=== PATIENT | female | born 1955 | race Two or more races ===

== ENCOUNTER 2023-09-20 06:41 | Inpatient (IN) | payer MEDICARE, OTHER ==
[~2023-09-20] VITALS: Ht 160 cm; Wt 92.2 kg
[2023-09-20] MEDS ORDERED: LIDOCAINE 2% JEL UROJET 10 ML MM ONE (06:59)
[2023-09-20] MEDS ORDERED: FENTANYL PF 100MCG/2ML AMPUL ONE (07:00)
[2023-09-20] MEDS ORDERED: LABETALOL HCL IV 100MG VIAL ONE (07:00)
[2023-09-20] MEDS ORDERED: OXYMETAZOLINE HCL NASAL SPRAY 30 ML BOTTLE NS ONE (07:00)
[2023-09-20] MEDS ORDERED: FAMOTIDINE/PF INJ 20 MG/2 ML VIAL IV ONE (07:01)
[2023-09-20] MEDS ORDERED: ROCURONIUM BROMIDE 50 MG/5 ML ONE (07:01)
[2023-09-20] MEDS ORDERED: LIDOCAINE 2%-EPI 1:100,000 30 ML VIAL ONE (07:02)
[2023-09-20] MEDS ORDERED: dexaMETHasone SOD PHOSPHATE 2 ML ONE (07:02)
[2023-09-20] MEDS ORDERED: VANCOMYCIN 1 GM VIAL ONE (07:03)
[2023-09-20] MEDS ORDERED: ACETAMINOPHEN 325 MG TABLET PO PRN (11:30)
[2023-09-20] MEDS ORDERED: ONDANSETRON HCL/PF 4 MG/2 ML VIAL IV PRN (11:30)
[2023-09-20] MEDS: HYDROMORPHONE 1 MG/1 ML DISP.SYRIN IV PRN (12:34)
[2023-09-20] MEDS ORDERED: Z GUARD REMEDY 4 OZ OINT TP PRN (13:00)
[2023-09-20] MEDS ORDERED: MAGNESIUM HYDROXIDE 30 ML UDC PO PRN (13:00)
[2023-09-20] MEDS ORDERED: ONDANSETRON HCL/PF 4 MG/2 ML VIAL IVP PRN (13:00)
[2023-09-20] MEDS ORDERED: MAG HYDROX/AL HYDROX/SIMETH 30 ML UDC PO PRN (13:00)
[2023-09-20] MEDS: IV NS 0.9% 1,000 ML IV PRN (15:26)
[2023-09-20] MEDS ORDERED: CHOL200059 PO (18:38)
[2023-09-20 20:00] VITALS: BP 127/70; TEMP 98.8; O2SAT 94
[2023-09-20] MEDS: VANCOMYCIN 1 GM in IV D5W 250ml IV SCH (20:47)
[2023-09-20] MEDS: ACETAMINOPHEN 325 MG TABLET PO PRN (20:50)
[2023-09-20 21:00] VITALS: O2SAT 94
[2023-09-21 06:49] LABS: BASOPHILS % (AUTO) 0.1 % (0.0-2.0); EOSINOPHILS % (AUTO) 0.1 % (0.0-6.0); HEMATOCRIT 40 % (33-45); HEMOGLOBIN 13.2 g/dL (11.5-14.8); LYMPHOCYTES # (AUTO) 1.6 K/uL (0.8-4.8); LYMPHOCYTES % (AUTO) 14.6 % (20.0-44.0); MEAN CORPUSCULAR HEMOGLOBIN 27 PG (26.0-33.0); MEAN CORPUSCULAR HGB CONC 33 g/dl (31.0-36.0); MEAN CORPUSCULAR VOLUME 81 fL (82-100); MONOCYTES # (AUTO) 0.8 K/uL (0.1-1.30); MONOCYTES % (AUTO) 6.9 % (2.0-12.0); NEUTROPHILS # (AUTO) 8.8 K/uL (1.8-8.9); NEUTROPHILS % (AUTO) 78.3 % (43.0-81.0); PLATELET COUNT (AUTO) 287 K/uL (150-450); RED BLOOD CELL COUNT(AUTO) 4.88 MIL/uL (4.0-5.2); RED CELL DISTRIBUTION WIDTH 14.3 % (11.5-15.0); WHITE BLOOD COUNT (AUTO) 11.3 K/uL (4.3-11.0)
[2023-09-21 07:11] LABS: CALCIUM, SERUM 8.2 mg/dL (8.5-10.1); CREATININE 0.6 mg/dL (0.6-1.3); MAGNESIUM 2.4 mg/dL (1.8-2.4); PHOSPHORUS 3.2 mg/dL (2.5-4.9)
[2023-09-21 07:15] LABS: POTASSIUM 2.7 mmol/L (3.5-5.1)
[2023-09-21 08:00] VITALS: BP 132/82; TEMP 98.8; O2SAT 95
[2023-09-21] MEDS ORDERED: POTASSIUM CHLORIDE 20 MEQ TAB.PRT.SR PO ONE (09:30)
[2023-09-21] MEDS: POTASSIUM CHLORIDE 20 MEQ TAB.PRT.SR PO ONE (09:55)
== END 2023-09-21 10:58 | disposition home or self-care (01) | DRG 144 ==
LOC: DS 06:41 → MED 11:00
PROVIDERS: ADMIT Internal Medicine; ATTEND Internal Medicine
PROC: 0NBV0ZX Excision of Left Mandible, Open Approach, Diagnostic (ICD-10-PCS; principal; 2023-09-20)
PROC: 0NST0ZZ Reposition Right Mandible, Open Approach (ICD-10-PCS; 2023-09-20)
PROC: 09BQ0ZZ Excision of Right Maxillary Sinus, Open Approach (ICD-10-PCS; 2023-09-20)
PROC: 0NUV07Z Supplement Left Mandible with Autologous Tissue Substitute, Open Approach (ICD-10-PCS; 2023-09-20)
PROC: 0NUR07Z Supplement Maxilla with Autologous Tissue Substitute, Open Approach (ICD-10-PCS; 2023-09-20)
PROC: 0NSV0ZZ Reposition Left Mandible, Open Approach (ICD-10-PCS; 2023-09-20)
PROC: 0NUT0JZ Supplement Right Mandible with Synthetic Substitute, Open Approach (ICD-10-PCS; 2023-09-20)
PROC: 0NBR0ZX Excision of Maxilla, Open Approach, Diagnostic (ICD-10-PCS; 2023-09-20)
PROC: 0NBT0ZX Excision of Right Mandible, Open Approach, Diagnostic (ICD-10-PCS; 2023-09-20)
DX: S02.40CA Maxillary fracture, right side, initial encounter for closed fracture (principal); M87.88 Other osteonecrosis, other site; T81.83XA Persistent postprocedural fistula, initial encounter; D16.4 Benign neoplasm of bones of skull and face; S02.69XA Fracture of mandible of other specified site, initial encounter for closed fracture; S02.40DA Maxillary fracture, left side, initial encounter for closed fracture; M27.2 Inflammatory conditions of jaws; I10 Essential (primary) hypertension; M27.49 Other cysts of jaw; J32.9 Chronic sinusitis, unspecified; X58.XXXA Exposure to other specified factors, initial encounter; Y93.9 Activity, unspecified; Y92.009 Unspecified place in unspecified non-institutional (private) residence as the place of occurrence of the external cause
CPT/HCPCS: 36415; 80048-TC; 83735-TC; 84100-TC; 85025-TC; A4223; C1713; G0378; J1100; J1170; J2405; J2704; J2765; J3010; J3370; J3490; J7030; J7060

== ENCOUNTER 2024-04-02 06:53 | Inpatient (IN) | payer MEDICARE, OTHER ==
[2024-04-02] VITALS (8 sets, daily range): BP systolic 123–159; BP diastolic 73–88; TEMP 97.6–98.5; O2SAT 94–96
[~2024-04-02] VITALS: Ht 160 cm; Wt 73.0 kg
[~2024-04-02 06:53] MED LIST: CHOL200059 PO; FENTANYL PF 100MCG/2ML AMPUL ONE; KETAMINE HCL (500MG/10ML) 50 MG/ML VIAL ONE; LIDOCAINE 1%-EPI 1:100,000 20 ML VIAL ONE; OXYMETAZOLINE HCL NASAL SPRAY 30 ML BOTTLE NS ONE; ROCURONIUM BROMIDE 50 MG/5 ML ONE; VANCOMYCIN 1 GM VIAL ONE; dexaMETHasone SOD PHOSPHATE 2 ML ONE
[2024-04-02] MEDS ORDERED: LABETALOL 20 MG/4 ML VIAL ONE (08:12)
[2024-04-02] MEDS ORDERED: hydrALAZINE HCL IV 20 MG VIAL ONE (08:12)
[2024-04-02] MEDS ORDERED: SEVOFLURANE 250 ML BOTTLE IH ONE (08:27)
[2024-04-02] MEDS ORDERED: ONDANSETRON HCL/PF 4 MG/2 ML VIAL IV PRN (11:00)
[2024-04-02] MEDS ORDERED: ACETAMINOPHEN 325 MG TABLET PO PRN (11:00)
[2024-04-02] MEDS: HYDROMORPHONE 1 MG/1 ML DISP.SYRIN IV PRN (11:06)
[2024-04-02] MEDS: IV NS 0.9% 1,000 ML IV PRN (12:29)
[2024-04-02] MEDS ORDERED: CHLO50TA PO (13:26)
[2024-04-02] MEDS ORDERED: IBUP-1955 PO (13:26)
[2024-04-02] MEDS: VANCOMYCIN 1 GM in IV D5W 250ml IV SCH (20:39)
[2024-04-03 07:30] VITALS: BP 131/75; TEMP 98.6; O2SAT 94
[2024-04-03] MEDS ORDERED: CHLORTHALIDONE 50 MG PO SCH (09:00)
== END 2024-04-03 14:15 | disposition home or self-care (01) | DRG 908 ==
LOC: DS 06:53 → MED 06:57
PROC: 0NSL0ZZ Reposition Left Palatine Bone, Open Approach (ICD-10-PCS; principal; 2024-04-02)
PROC: 0N5R0ZZ Destruction of Maxilla, Open Approach (ICD-10-PCS; 2024-04-02)
PROC: 0N5V0ZZ Destruction of Left Mandible, Open Approach (ICD-10-PCS; 2024-04-02)
PROC: 0N5T0ZZ Destruction of Right Mandible, Open Approach (ICD-10-PCS; 2024-04-02)
PROC: 0NHV04Z Insertion of Internal Fixation Device into Left Mandible, Open Approach (ICD-10-PCS; 2024-04-02)
PROC: 0NHR04Z Insertion of Internal Fixation Device into Maxilla, Open Approach (ICD-10-PCS; 2024-04-02)
PROC: 0NHT04Z Insertion of Internal Fixation Device into Right Mandible, Open Approach (ICD-10-PCS; 2024-04-02)
PROC: 0NUR07Z Supplement Maxilla with Autologous Tissue Substitute, Open Approach (ICD-10-PCS; 2024-04-02)
DX: T86.831 Bone graft failure (principal); S02.40CK Maxillary fracture, right side, subsequent encounter for fracture with nonunion; S02.40DK Maxillary fracture, left side, subsequent encounter for fracture with nonunion; S02.69XK Fracture of mandible of other specified site, subsequent encounter for fracture with nonunion; S02.82XA Fracture of other specified skull and facial bones, left side, initial encounter for closed fracture; X58.XXXD Exposure to other specified factors, subsequent encounter; I10 Essential (primary) hypertension; Z87.891 Personal history of nicotine dependence; J32.0 Chronic maxillary sinusitis; M27.40 Unspecified cyst of jaw; T18.0XXA Foreign body in mouth, initial encounter; Y83.2 Surgical operation with anastomosis, bypass or graft as the cause of abnormal reaction of the patient, or of later complication, without mention of misadventure at the time of the procedure; X58.XXXA Exposure to other specified factors, initial encounter; Y93.9 Activity, unspecified; Y92.009 Unspecified place in unspecified non-institutional (private) residence as the place of occurrence of the external cause
CPT/HCPCS: 87081-TC; 88305-TC; 88311-TC; A4338; C1713; G0378; J0360; J1100; J1171; J2405; J2704; J3010; J3370; J3490; J7030; J7060

== ENCOUNTER 2024-08-07 09:34 | Inpatient (IN) | payer MEDICARE, OTHER ==
[~2024-08-07] VITALS: Ht 167.6 cm; Wt 77.1 kg
[~2024-08-07 09:34] MED LIST changes: +CHLO50TA PO; +IBUP-1955 PO; -KETAMINE HCL (500MG/10ML) 50 MG/ML VIAL ONE; -LIDOCAINE 1%-EPI 1:100,000 20 ML VIAL ONE; +MIDAZOLAM HCL 2 MG/2ML VIAL ONE; -OXYMETAZOLINE HCL NASAL SPRAY 30 ML BOTTLE NS ONE; -ROCURONIUM BROMIDE 50 MG/5 ML ONE; -VANCOMYCIN 1 GM VIAL ONE; -dexaMETHasone SOD PHOSPHATE 2 ML ONE
[2024-08-07] MEDS ORDERED: VANCOMYCIN 1 GM VIAL ONE (12:12)
[2024-08-07] MEDS ORDERED: LIDOCAINE 2%-EPI 1:100,000 30 ML VIAL ONE (12:12)
[2024-08-07] MEDS ORDERED: HYDROMORPHONE 1 MG/1 ML DISP.SYRIN IV PRN ×2 (13:00→14:30)
[2024-08-07 14:10] VITALS: BP 146/88; TEMP 98.2; O2SAT 96
[2024-08-07] MEDS ORDERED: ACETAMINOPHEN 325 MG TABLET PO PRN ×2 (14:30→17:00)
[2024-08-07] MEDS ORDERED: ONDANSETRON HCL/PF 4 MG/2 ML VIAL IV PRN (14:30)
[2024-08-07] MEDS: IV NS 0.9% 1,000 ML IV PRN (15:36)
[2024-08-07] MEDS ORDERED: CHOL100043 PO (15:49)
[2024-08-07 15:59] VITALS: BP 126/64; TEMP 97.8; O2SAT 99
[2024-08-07 16:01] VITALS: BP 126/64; TEMP 97.8; O2SAT 99
[2024-08-07] MEDS ORDERED: ONDANSETRON HCL/PF 4 MG/2 ML VIAL IVP PRN (17:00)
[2024-08-07 20:00] VITALS: BP 126/74; TEMP 98.1; O2SAT 95
[2024-08-07] MEDS: VANCOMYCIN 1 GM in IV D5W 250ml IV SCH (23:06)
[2024-08-08 06:24] LABS: BASOPHILS # (AUTO) 0.1 K/uL (0.0-0.2); BASOPHILS % (AUTO) 1.1 % (0.0-2.0); HEMATOCRIT 41 % (33-45); HEMOGLOBIN 13.9 g/dL (11.5-14.8); LYMPHOCYTES # (AUTO) 1.3 K/uL (0.8-4.8); LYMPHOCYTES % (AUTO) 11.9 % (20.0-44.0); MEAN CORPUSCULAR HEMOGLOBIN 28 PG (26.0-33.0); MEAN CORPUSCULAR HGB CONC 34 g/dl (31.0-36.0); MEAN CORPUSCULAR VOLUME 82 fL (82-100); MONOCYTES # (AUTO) 0.5 K/uL (0.1-1.30); MONOCYTES % (AUTO) 5.2 % (2.0-12.0); NEUTROPHILS # (AUTO) 8.6 K/uL (1.8-8.9); NEUTROPHILS % (AUTO) 81.8 % (43.0-81.0); PLATELET COUNT (AUTO) 262 K/uL (150-450); RED BLOOD CELL COUNT(AUTO) 5.02 MIL/uL (4.0-5.2); RED CELL DISTRIBUTION WIDTH 14.1 % (11.5-15.0); WHITE BLOOD COUNT (AUTO) 10.5 K/uL (4.3-11.0)
[2024-08-08 06:54] LABS: ALBUMIN 3.1 g/dL (3.4-5.0); BILIRUBIN,TOTAL 0.6 mg/dL (0.2-1.0); CALCIUM, SERUM 8.5 mg/dL (8.5-10.1); CREATININE 0.6 mg/dL (0.6-1.3); MAGNESIUM 2.5 mg/dL (1.8-2.4); PHOSPHORUS 4.1 mg/dL (2.5-4.9); TOTAL PROTEIN, SERUM 6.5 g/dL (6.4-8.2)
[2024-08-08 08:00] VITALS: BP 140/74; TEMP 98.1; O2SAT 98
== END 2024-08-08 13:20 | disposition home or self-care (01) | DRG 497 ==
LOC: DS 09:34 → MED 14:36
PROVIDERS: ADMIT Internal Medicine; ATTEND Internal Medicine
PROC: 0NPW04Z Removal of Internal Fixation Device from Facial Bone, Open Approach (ICD-10-PCS; principal; 2024-08-07)
PROC: 0N5V0ZZ Destruction of Left Mandible, Open Approach (ICD-10-PCS; 2024-08-07)
PROC: 0N5R0ZZ Destruction of Maxilla, Open Approach (ICD-10-PCS; 2024-08-07)
PROC: 0WB30ZZ Excision of Oral Cavity and Throat, Open Approach (ICD-10-PCS; 2024-08-07)
PROC: 0NBT0ZZ Excision of Right Mandible, Open Approach (ICD-10-PCS; 2024-08-07)
DX: T84.69XA Infection and inflammatory reaction due to internal fixation device of other site, initial encounter (principal); E55.9 Vitamin D deficiency, unspecified; I10 Essential (primary) hypertension; Z87.891 Personal history of nicotine dependence; K12.39 Other oral mucositis (ulcerative); M89.38 Hypertrophy of bone, other site; Y83.8 Other surgical procedures as the cause of abnormal reaction of the patient, or of later complication, without mention of misadventure at the time of the procedure; Y92.009 Unspecified place in unspecified non-institutional (private) residence as the place of occurrence of the external cause
CPT/HCPCS: 36415; 80053-TC; 83735-TC; 84100-TC; 85025-TC; A4223; A4338; G0378; J0330; J1171; J1885; J2250; J2405; J2704; J3010; J3370; J3490; J7030; J7060